=== PATIENT | male | born 1990 | race Caucasian/White ===

== ENCOUNTER 2019-07-29 12:25 | Emergency (ER) | payer SELFPAY ==
[2019-07-29 12:33] VITALS: BMI 26.4
[2019-07-29 12:36] VITALS: BP 152/95; PULSE 114; RESP 16; TEMP 36.8; O2SAT 97
--- NOTE | 2019-07-29 13:22 | W.ED.SKABFB ---
HPI - Skin/Abscess/Foreign Bdy General: Chief complaint: Skin/Abscess/Foreign Body Stated complaint: facial swelling Time Seen by Provider: 07/29/19 12:51 History of Present Illness: HPI narrative: Patient is a 29-year-old male who comes to the ED with possible abscess on face. Patient says that swelling, pain and redness on left side of face started in the past 2 days. Patient says he was shaving when he noticed a small bump on left side of face. He says within the last 2 days it is gotten significantly larger and more painful and red. He now has redness that goes to his ear down to his neck. Denies any fever or chills. Denies any shortness of breath. Patient's last tetanus was about a year ago. Associated symptoms: Deny chills, fever(s), nausea or vomiting Review of Systems Const: Denies: fever(s), chills or fatigue Eyes: Denies: change in vision or eye discomfort ENMT: Reports: sinus pain (Facial pain and swelling on left side of lower jaw.); Denies: throat pain, odynophagia, nasal discharge or nasal congestion Card: Denies: chest pain, palpitations, edema, swelling of feet/ankles, dyspnea on exertion or orthopnea Resp: Denies: dyspnea, productive cough or non-productive cough GI: Denies: abdominal pain, nausea, vomiting, diarrhea, constipation or hematochezia : Denies: flank pain, difficulty urinating, dysuria or hematuria Musc: Denies: neck pain, back pain or extremity swelling Skin/Breast: Denies: rash or new lesions Neuro: Denies: headache(s), numbness in extremities or weakness in extremities PFSH ED PFSH: Social History Smoking and tobacco status: current every day smoker cigarettes Packs smoked per day: 0.5 Alcohol intake: never Physical Exam Const: COMMON NORMALS: patient oriented x3 and alert GENERAL APPEARANCE: cooperative HENMT: COMMON NORMALS: normocephalic HEAD & SCALP: normocephalic FACE & SINUS: erythema on the left mandible and edema on the left mandible MOUTH: Normal oral and palatal mucosa present THROAT: posterior oropharynx normal and uvula midline Eye: COMMON NORMALS: Equal, round and reactive pupils present PUPIL: Yes Equal, round and reactive pupils present Neck/C-Spine: COMMON NORMALS: supple GENERAL: Yes normal visual inspection Resp: COMMON NORMALS: normal respiratory effort, No retractions, No use of accessory muscles and clear to auscultation bilaterally AUSCULTATION: clear to auscultation bilaterally Cardio: COMMON NORMALS: regular rate, regular rhythm, S1 normal heart sound present, S2 normal heart sound present, No gallops present (Cardio), No clicks present (Cardio), No murmurs present (Cardio) and Peripheral pulses 2+ throughout RATE: regular rate RHYTHM: regular rhythm HEART SOUNDS: S1 normal heart sound present and S2 normal heart sound present PERIPHERAL PULSES: Peripheral pulses 2+ throughout GI: COMMON NORMALS: Normal to inspection, nondistended, normoactive bowel sounds present, Soft to palpation, non-tender and no masses PALPATION: Yes Soft to palpation : COMMON NORMALS: Yes no CVA tenderness BLADDER/KIDNEY EXAM: Yes no CVA tenderness Back/Pelvis: COMMON NORMALS: no CVA tenderness Extremity: COMMON NORMALS: normal to inspection Neuro: COMMON NORMALS: patient oriented x3 and moves all extremities SENSORIUM/ORIENTATION: Yes alert Skin: LESIONS: lesion noted left-side of face Lesion type: Yes nodule Lesion size (cm): 2 Lesion location: left side of face over mandible Lesion color: Yes erythematous Lesion consistency: Yes fluctuent and Yes firm Lesion surface: Yes dry Lesion tenderness: Yes moderate Lesion finding consistent with: Yes other (abscess) Procedures Abscess I/D Site: face Side (if applicable): left Sedation/analgesia: none Local Anesthetic: lidocaine 1% and with epi Amount of anesthesia used (mL): 10 Technique: incised with #11 blade Amount of fluid expressed (mL): 10 Irrigation: Yes Packing used?: iodoform Course Vital Signs: Vital signs: Vital Signs Temperature 99.0 F 07/29/19 14:55 Pulse Rate 68 07/29/19 14:55 Respiratory Rate 18 07/29/19 14:55 Blood Pressure 148/90 07/29/19 14:55 Pulse Oximetry 100 07/29/19 14:55 MDM - Skin/Abscess/Foreign Bdy MDM Narrative: Medical decision making narrative: Patient is a 29-year-old male who comes to the ED with left facial abscess. Incision and drainage was performed on the abscess. Purulent drainage was collected and sent to lab for culture. Packing was placed an abscess. Patient was given a prescription of Bactrim and told to return to the ED in 1 to 2 days for reevaluation and packing removal. Patient understood and agreed with plan. Discharge Plan Discharge Patient Disposition: Home, Self-Care Clinical Impression: Abscess Condition: Stable Prescriptions: New Bactrim DS 800-160 mg tablet 1 tab PO BID 10 Days Qty: 20 RF: 0 No Action ibuprofen 200 mg Tablet 200 mg PO Q6H PRN (Reason: Pain) RF: 0 Discharge Orders: Discharge Order (Routine); Ordered 07/29/19 Ordered By: Shailesh Kenny Discharge Diet: Regular Discharge Activity: Resume usual activity Patient Instructions: Abscess Incision and Drainage (ED), Abscess (ED) Activity Restrictions/Additional Instructions: Return to the ED for reevaluation and to get packing removed on abscess in 1 to 2 days. Take full course of antibiotics as prescribed. You take ibuprofen or Tylenol for pain. Discharge Date/Time: 07/29/19 14:57 Coding Level of Care Code ED Steam And Power Superintendent for Khris Banerjee Exam Comprehensive
[2019-07-29 13:37] VITALS: RESP 18
[2019-07-29] MEDS: morphine 4 mg/mL SDV 1 mL IM (13:37)
[2019-07-29 14:00] VITALS: BP 150/90; PULSE 66; RESP 18; TEMP 36.7; O2SAT 100
[2019-07-29 14:32] VITALS: RESP 18
[2019-07-29] MEDS: sulfamethoxazole-trimeth DS 160-800 mg Tablet 1 TAB PO (14:54)
[2019-07-29 14:55] VITALS: BP 148/90; PULSE 68; RESP 18; TEMP 37.2; O2SAT 100
== END 2019-07-29 14:57 | disposition home or self-care (01) ==
PROVIDERS: Emergency Provider Physician Assistant
DX: L02.01 Cutaneous abscess of face (principal); F17.210 Nicotine dependence, cigarettes, uncomplicated
CPT/HCPCS: 10060; 12345; 87070; 87075; 87077; 87186; 87205; 96372; 99283; J2001; J2270

== ENCOUNTER 2019-07-31 10:56 | Emergency (ER) | payer SELFPAY ==
[2019-07-31 10:59] VITALS: BP 129/74; PULSE 78; RESP 17; TEMP 37.1; O2SAT 98; BMI 26.4
--- NOTE | 2019-07-31 11:32 | ED_ITS ---
HPI - General Adult General: Chief complaint: General Medical Stated complaint: NEEDS PACKING TAKEN OUT Time Seen by Provider: 07/31/19 11:06 History of Present Illness: HPI narrative: Patient is a 29-year-old male who comes in for reevaluation and packing removal after abscess I&D performed 2 days ago. Patient says his swelling his decreased and his pain has improved. He has been taking full course of antibiotics as prescribed. Associated symptoms: Deny chest pain, dyspnea, headache(s), nausea, rash, palpitations or vomiting Review of Systems Const: Denies: fever(s), chills or fatigue Eyes: Denies: change in vision or eye discomfort ENMT: Reports: sinus pain (improving left side facial swelling due to abscess); Denies: throat pain, odynophagia, nasal discharge or nasal congestion Card: Denies: chest pain, palpitations, edema, swelling of feet/ankles, dyspnea on exertion or orthopnea Resp: Denies: dyspnea, productive cough or non-productive cough GI: Denies: abdominal pain, nausea, vomiting, diarrhea, constipation or hematochezia : Denies: flank pain, difficulty urinating, dysuria or hematuria Musc: Denies: neck pain, back pain or extremity swelling Skin/Breast: Reports: new lesions (Abscess on left side of face I&D 2 days ago.); Denies: rash Neuro: Denies: headache(s), numbness in extremities or weakness in extremities PFSH ED PFSH: Social History Smoking and tobacco status: current every day smoker cigarettes Packs smoked per day: 0.5 Alcohol intake: never Physical Exam Const: COMMON NORMALS: patient oriented x3 HENMT: COMMON NORMALS: normocephalic HEAD & SCALP: normocephalic MOUTH: Normal oral and palatal mucosa present THROAT: posterior oropharynx normal and uvula midline Neck/C-Spine: COMMON NORMALS: supple GENERAL: Yes normal visual inspection Resp: COMMON NORMALS: normal respiratory effort, No retractions, No use of accessory muscles and clear to auscultation bilaterally AUSCULTATION: clear to auscultation bilaterally Cardio: COMMON NORMALS: regular rate, regular rhythm, S1 normal heart sound present, S2 normal heart sound present, No gallops present (Cardio), No clicks present (Cardio), No murmurs present (Cardio) and Peripheral pulses 2+ throughout RATE: regular rate RHYTHM: regular rhythm HEART SOUNDS: S1 normal heart sound present and S2 normal heart sound present PERIPHERAL PULS ES: Peripheral pulses 2+ throughout GI: COMMON NORMALS: Normal to inspection, nondistended, normoactive bowel sounds present, Soft to palpation, non-tender and no masses PALPATION: Yes Soft to palpation : COMMON NORMALS: Yes no CVA tenderness BLADDER/KIDNEY EXAM: Yes no CVA tenderness Back/Pelvis: COMMON NORMALS: no CVA tenderness Neuro: COMMON NORMALS: patient oriented x3 and moves all extremities Skin: NARRATIVE SKIN EXAM: Abscess area was still draining some pus after removing the packing. I then pushed on the area drained more pus and fluid out. Swelling has improved significantly compared to 2 days ago. Course Vital Signs: Vital signs: Vital Signs Temperature 98.7 F 07/31/19 10:59 Pulse Rate 80 07/31/19 11:47 Respiratory Rate 17 07/31/19 11:47 Blood Pressure 129/74 07/31/19 10:59 Pulse Oximetry 98 07/31/19 11:47 MDM - General Adult MDM Narrative: Medical decision making narrative: Patient is a 29-year-old male who comes to the ED for reevaluation of abscess and packing removal. Patient swelling on left side of face improved significantly compared to 2 days ago. He says he is having less pain and improvement in swelling. He has been taking his full course of Bactrim as prescribed. I removed the packing and applied pressure on incision area and more purulent drainage came out. We then placed a bandage fact over the area and patient was discharged and told to come back for reevaluation in 5 to 7 days. Patient understood and agreed with plan. Discharge Plan Discharge Patient Disposition: Home, Self-Care Clinical Impression: Abscess Condition: Stable Prescriptions: No Action ibuprofen 200 mg Tablet 200 mg PO Q6H PRN (Reason: Pain) RF: 0 Bactrim DS 800-160 mg tablet 1 tab PO BID 10 Days Qty: 20 RF: 0 Discharge Orders: Discharge Order (Routine); Ordered 07/31/19 Ordered By: Shailesh Kenny Discharge Diet: Regular Discharge Activity: Resume usual activity Patient Instructions: Abscess (ED) Activity Restrictions/Additional Instructions: Continue taking your Bactrim as prescribed. I have abscess reevaluated in about 5 to 7 days. You can return to the ED if you notice any worsening symptoms. Keep abscess site bandaged to catch drainage. Discharge Date/Time: 07/31/19 11:48 Coding Level of Care Code ED Welding Machine Assembler for Khris Banerjee Exam Comprehensive
[2019-07-31 11:47] VITALS: PULSE 80; RESP 17; O2SAT 98
[2019-07-31] MEDS: HYDROcodone-acetaminophen 7.5-325 mg Tablet 1 TAB PO (11:47)
--- NOTE | 2019-08-02 06:19 | PC.NURSE ---
Lab called micro report on abscess. Dr. Leung reviewed results and patient's visit and the Bactrim patient is on and states antibiotics are appropriate. No new orders given.
== END 2019-07-31 11:48 | disposition home or self-care (01) ==
PROVIDERS: Emergency Provider Physician Assistant
DX: L02.01 Cutaneous abscess of face (principal); F17.210 Nicotine dependence, cigarettes, uncomplicated
CPT/HCPCS: 12345; 99281; 99283

== ENCOUNTER 2019-09-27 16:38 | Emergency (ER) | payer SELFPAY ==
[2019-09-27 16:52] VITALS: BP 136/84; PULSE 111; RESP 16; TEMP 36.7; O2SAT 99; BMI 25.7
--- NOTE | 2019-09-27 17:13 | ED_ITS ---
HPI - Allergic Reaction General: Chief complaint: Allergic Reaction Stated complaint: facial swelling Time Seen by Provider: 09/27/19 17:09 History of Present Illness: HPI narrative: Patient is a 29-year-old male who comes to the ED with right-sided facial swelling and pain. Patient says swelling and pain occurred in the last 24 hours. Patient had a small scratch/sore right above the right ear started getting red and painful. Denies any discharge from sore. Today his right ear and the right side of his face from the upper jaw up to his eye were swollen. He is complaining of right ear pain as well. He also feels some pain and swelling in his neck. He rates pain a 9 out of 10. Denies any fevers, chills, change in hearing, sore throat, throat swelling obstructing airway, vomiting, bladder or bowel symptoms. Associated symptoms: Deny abdominal pain, nausea or vomiting Review of Systems Const: Denies: fever(s), chills or fatigue Eyes: Denies: change in vision or eye discomfort ENMT: Reports: ear or mastoid pain (right ear); Denies: throat pain, odynophagia, nasal discharge or nasal congestion Card: Denies: chest pain, palpitations, edema, swelling of feet/ankles, dyspnea on exertion or orthopnea Resp: Denies: dyspnea, productive cough or non-productive cough GI: Denies: abdominal pain, nausea, vomiting, diarrhea, constipation or hematochezia : Denies: flank pain, difficulty urinating, dysuria or hematuria Musc: Denies: neck pain, back pain or extremity swelling Skin/Breast: Reports: new lesions; Denies: rash Neuro: Denies: headache(s), numbness in extremities or weakness in extremities [facility] ED PFSH: Social History Smoking and tobacco status: current every day smoker cigarettes Packs smoked per day: 0.5 Alcohol intake: current Alcohol intake frequency: few times a week Substance/Drug Use: never Physical Exam Const: COMMON NORMALS: patient oriented x3, healthy appearing and alert GENERAL APPEARANCE: cooperative and comfortable HENMT: COMMON NORMALS: normocephalic and TM's normal bilaterally HEAD & SCALP: normocephalic FACE & SINUS: abrasion on the right (Small abrasion above the right ear with surrounding erythema, warmth and tenderness. It is nonfluctuant and indurated.) and edema on the right maxilla and angle of jaw EXTERNAL EAR: Yes external ear abnormal Abnormal external ear present: auricular tenderness (Right auricular swelling and tenderness.) EXTERNAL AUDITORY CANAL: Abnormal EAC present EAC laterality: right Details: erythema and EAC tenderness TYMPANIC MEMBRANE: TM's normal bilaterally MOUTH: Normal oral and palatal mucosa present THROAT: posterior oropharynx normal and uvula midline Eye: COMMON NORMALS: Equal, round and reactive pupils present and conjunctivae normal PERIORBITAL: periorbital findings abnormal positive right periorbital swelling (Mild swelling) CONJUNCTIVA: Yes conjunctivae normal PUPIL: Yes Equal, round and reactive pupils present Neck/C-Spine: COMMON NORMALS: supple GENERAL: Yes normal visual inspection Lymph: LYMPHATIC: lymphadenopathy OTHER: Patient has palpable lymph nodes in the posterior, anterior cervical neck chains on the right side. They are approximately 0.25 cm in size. He also has palpable submandibular lymph node on right side that measures approximately 0.25 cm in size. They are mobile Resp: COMMON NORMALS: normal respiratory effort, No retractions, No use of accessory muscles and clear to auscultation bilaterally AUSCULTATION: clear to auscultation bilaterally Cardio: COMMON NORMALS: regular rate, regular rhythm, S1 normal heart sound present, S2 normal heart sound present, No gallops present (Cardio), No clicks present (Cardio), No murmurs present (Cardio) and Peripheral pulses 2+ throughout RATE: regular rate RHYTHM: regular rhythm HEART SOUNDS: S1 normal heart sound present and S2 normal heart sound present PERIPHERAL PULSES: Peripheral pulses 2+ throughout GI: COMMON NORMALS: Normal to inspection, nondistended, normoactive bowel sounds present, Soft to palpation, non-tender and no masses PALPATION: Yes Soft to palpation : COMMON NORMALS: Yes no CVA tenderness BLADDER/KIDNEY EXAM: Yes no CVA tenderness Back/Pelvis: COMMON NORMALS: no CVA tenderness Extremity: COMMON NORMALS: normal to inspection and no pedal edema Neuro: COMMON NORMALS: patient oriented x3 and moves all extremities SENSORIUM/ORIENTATION: Yes alert Skin: NARRATIVE SKIN EXAM: Patient appears to have a small abrasion above the right ear with some surrounding, warmth and erythema and tenderness to palpation. Upon palpation it is nonfluctuant and indurated. He has visible facial edema right side maxillary and right ear edema. GENERAL SKIN EXAM: dry skin Course ED course: Bedside ultrasound performed and no abscess formation identified. Vital Signs: Vital signs: Vital Signs Temperature 98.6 F 09/27/19 20:22 Pulse Rate 90 09/27/19 20:22 Respiratory Rate 16 09/27/19 20:22 Blood Pressure 145/85 09/27/19 20:22 Pulse Oximetry 99 09/27/19 20:22 MDM - Allergic Reaction MDM Narrative: Medical decision making narrative: Patient is a 29-year-old male who comes to the ED with swelling on right side of face. Exam shows an abrasion above the right ear with erythema no warmth and tenderness. No visible drainage. Nonfluctuant and indurated.--Cellulitis. Right ear exam showed external canal erythema and tenderness. Bedside ultrasound performed and no abscess was seen. Patient was diagnosed with cellulitis and otitis externa. He was sent home with a prescription of clindamycin and Cipro?Dex eardrops. Patient was told to return to ED if pain and swelling increases to reevaluate and potentially drain abscess. Patient understood and agreed with plan. Lab Data: Attestation: I reviewed the patient's lab results. Labs: Lab Results 09/27/19 09/27/19 Range/Units 17:26 17:26 WBC 8.7 (4.0-10.0) 10^3/ uL RBC 5.08 (4.1-5.3) 10^6/u L Hgb 14.7 (11.7-16.6) g/dL Hct 44.9 (42.0-52.0) % MCV 88.4 (80-94) fL MCH 28.9 (28.0-34.0) pg MCHC 32.7 (30.0-36.0) g/dL RDW 11.9 L (12.1-15.1) % Plt Count 277 (130-400) 10^3/c mm MPV 8.7 (7.4-10.4) fL Neut % (Auto) 71.9 % Lymph % (Auto) 18.4 % [place] % (Auto) 4.7 % Eos % (Auto) 4.4 % Baso % (Auto) 0.5 % Neut # (Auto) 6.23 (1.8-7.7) 10^3/u L Lymph # (Auto) 1.6 (0.8-4.8) 10^3/u L [place] # (Auto) 0.4 (0.2-0.9) 10^3/u L Eos # (Auto) 0.4 (0.0-0.8) 10^3/u L Baso # (Auto) 0.0 (0.0-0.1) 10^3/u L Nucleated RBC % (a uto) 0 % Nucleated RBCs # 0.0 /100WBC Sodium 139 (136-145) mmol/L Potassium 3.7 (3.5-5.1) mmol/L Chloride 101 (98-107) mmol/L Carbon Dioxide 29 (22-29) mmol/L Anion Gap 12.7 (5-19) BUN 14 (6-20) mg/dL Creatinine 0.8 (0.7-1.2) mg/dL GFR Calculation 112.8 (90-130) mL/min Glucose 95 (65-115) mg/dL Calculated Osmolal ity 284 L (285-295) mOsm/k g Calcium 9.5 (8.5-10.5) mg/dL Total Bilirubin 0.5 (0.15-1.2) mg/dL AST 28 (0-40) U/L ALT 57 H (0-41) U/L Alkaline Phosphata se 93 (40-130) IU/L Total Protein 7.0 (6.6-8.7) g/dL Albumin 4.1 (3.5-5.2) g/dL Globulin 2.9 (1.3-4.6) g/dL Discharge Plan Discharge Patient Disposition: Home Clinical Impression: Cellulitis Qualifiers: Site of cellulitis: head Qualified Code(s): L03.811 - Cellulitis of head [any part, except face] Otitis externa Qualifiers: Otitis externa type: other infective Chronicity: acute Laterality: right Qualified Code(s): H60.391 - Other infective otitis externa, right ear Condition: Stable Prescriptions: New clindamycin HCl 150 mg capsule 300 mg PO QID 7 Days Qty: 56 RF: 0 ciprofloxacin-dexamethasone 0.3-0.1 % drops,suspension 4 drop EAR-BOTH BID 7 Days Qty: 7.5 RF: 0 No Action ibuprofen 200 mg Tablet 200 mg PO Q6H PRN (Reason: Pain) RF: 0 naproxen 375 mg Tablet 375 mg PO BID PRN (Reason: Pain) RF: 0 clindamycin HCl 75 mg Capsule 75 mg PO DAILY RF: 0 Benadryl 25 mg Capsule 25 mg PO QID PRN (Reason: unknown) RF: 0 Discharge Orders: Discharge Order (Routine); Ordered 09/27/19 Ordered By: Shailesh Kenny Discharge Diet: Regular Discharge Activity: Resume usual activity Patient Instructions: Cellulitis (ED), Otitis Externa (ED) Activity Restrictions/Additional Instructions: Follow-up with medical provider as directed in 7 days. Return to ED or urgent care if symptoms and swelling worsen after couple days of being on antibiotic. Take medications as prescribed. Return to the ER or your medical provider if condition worsens. Please read and understand discharge instructions. If any questions, please ask. Discharge Date/Time: 09/27/19 20:24 Coding Level of Care Code ED Hemming And Tacking Machine Operator for Khris Fwrobert Exam Comprehensive
[2019-09-27 17:38] LABS: Basophils % 0.5 %; Eosinophils # 0.4 10^3/uL (0.0-0.8); Eosinophils % 4.4 %; Hematocrit 44.9 % (42.0-52.0); Hemoglobin 14.7 g/dL (11.7-16.6); Lymphocytes # 1.6 10^3/uL (0.8-4.8); Lymphocytes % 18.4 %; Mean Corpuscular HGB Conc 32.7 g/dL (30.0-36.0); Mean Corpuscular Hemoglobin 28.9 pg (28.0-34.0); Mean Corpuscular Volume 88.4 fL (80-94); Mean Platelet Volume 8.7 fL (7.4-10.4); Monocytes # 0.4 10^3/uL (0.2-0.9); Monocytes % 4.7 %; Neutrophils # 6.23 10^3/uL (1.8-7.7); Neutrophils % 71.9 %; Nucleated Red Blood Cells % 0 %; Platelet Count 277 10^3/cmm (130-400); Red Blood Count 5.08 10^6/uL (4.1-5.3); Red Cell Distribution Width 11.9 % (12.1-15.1); White Blood Count 8.7 10^3/uL (4.0-10.0)
[2019-09-27] MEDS: diphenhydrAMINE 50 mg/mL SDV 1mL IVP (17:43)
[2019-09-27 17:44] VITALS: BP 140/97; PULSE 100; RESP 16; O2SAT 100
[2019-09-27 18:05] VITALS: BP 137/93; RESP 16; O2SAT 99
[2019-09-27 18:05] LABS: Alanine Aminotransferase 57 U/L (0-41); Albumin Level 4.1 g/dL (3.5-5.2); Alkaline Phosphatase 93 IU/L (40-130); Anion Gap 12.7 (5-19); Aspartate Amino Transferase 28 U/L (0-40); Blood Urea Nitrogen 14 mg/dL (6-20); Calcium 9.5 mg/dL (8.5-10.5); Carbon Dioxide 29 mmol/L (22-29); Chloride 101 mmol/L (98-107); Globulin 2.9 g/dL (1.3-4.6); Glomerular Filtration Rate 112.8 mL/min (90-130); Glucose 95 mg/dL (65-115); Osmolality Calculated 284 mOsm/kg (285-295); Potassium 3.7 mmol/L (3.5-5.1); Sodium 139 mmol/L (136-145); Total Bilirubin 0.5 mg/dL (0.15-1.2)
[2019-09-27] MEDS: sodium chloride 0.9% 1,000 ML 999 ML IV (18:08)
[2019-09-27] MEDS: ondansetron 2 mg/ML SDV 2 mL 4 MG IVP (18:08)
[2019-09-27] MEDS: HYDROcodone-acetaminophen 7.5-325 mg Tablet 1 TAB PO ×2 (18:08→20:21)
[2019-09-27 18:48] VITALS: BP 137/93; PULSE 95; RESP 18; TEMP 36.9; O2SAT 100
[2019-09-27] MEDS: ciprofloxacin-dexameth Otic Susp 7.5 mL Btl 4 DROP EAR-RIGHT (18:52)
[2019-09-27] MEDS: clindamycin 900 MG/50 ML PREMIX 100 MG IV (18:54)
[2019-09-27 20:22] VITALS: BP 145/85; PULSE 90; RESP 16; TEMP 37; O2SAT 99
== END 2019-09-27 20:24 | disposition home or self-care (01) ==
PROVIDERS: Emergency Provider Physician Assistant
DX: L03.811 Cellulitis of head [any part, except face] (principal); H60.391 Other infective otitis externa, right ear; F17.210 Nicotine dependence, cigarettes, uncomplicated
CPT/HCPCS: 12345; 36415; 80053; 85025; 87040; 96365; 96375; 99283; 99284; J1200; J2405; J2930; J3490; J7030

== ENCOUNTER 2020-04-23 16:49 | Emergency (ER) | payer SELFPAY ==
[2020-04-23 16:53] VITALS: BP 147/84; PULSE 83; RESP 18; TEMP 36.6; O2SAT 98; BMI 24.4
--- NOTE | 2020-04-23 17:17 | US_ITS ---
WS: [id number] SCROTAL ULTRASOUND EXAMINATION CLINICAL INFORMATION: scrotal abscess COMPARISON: None. FINDINGS: TESTES Diffuse scrotal skin thickening with edema measuring up to 2.0 CM. Normal echogenicity in the testicl es bilaterally. Hypoechoic focus in the right scrotum measuring 1.2 x 0.7 cm likely represents focal infection with small phlegmon/abscess. This does not appear drainable. Color Doppler: Normal color Doppler flow pattern. Right testes size: 4.2 cm x 3.1 cm x 2.9 cm. Left testes size: 5.3 cm x 3.3 cm x 3.8 cm. EPIDIDYMIDES Enlargement with edema and increased vascularity involving the right epididymis consistent with epidi dymitis. Left epididymis is normal. Right epididymis size: cm x cm x cm. Left epididymitis size: 1.6 cm x cm x cm. HYDROCELE None. VARICOCELE None. OTHER FINDINGS None. US/US scrotum [id number] IMPRESSION: 1. Right epididymitis. 2. Diffuse scrotal skin thickening with edema measuring up to 2.0 cm. Focal hy poechoic collection in the edematous scrotum likely small abscess measuring 1.3 x 0.7 cm. This does not appear drainable. 3. Testicles are otherwise normal in appearance with normal echogenicity and v ascularity.
--- NOTE | 2020-04-23 17:20 | ED_ITS ---
Documented by User: Luis Leung DO 04/24/20 12:45 HPI - Wound/Laceration General: Chief Complaint: Wound/Laceration Stated Complaint: SWOLLEN GENITALS Time Seen by Provider: 04/23/20 16:54 History of Present Illness: HPI narrative: 30-year-old male presents emergency room with complaint of severe swelling of the right side of the scrotum with an abscess had been trying to manipulate it at home tried various things and it did not improve in fact markedly worsened to the point where now he can barely walk. He has severe pain and swelling. Onset (ago): day(s) Location: genitals Place: home Context: sharp object use Associated symptoms: Reports nausea and pain; Denies chills, fever(s), foreign body sensation, inability to move, numbness, syncope or vomiting Review of Systems Const: Denies: fever(s) or chills ENMT: Denies: throat pain, ear or mastoid pain, nasal discharge or nasal congestion Card: Denies: syncope Resp: Denies: dyspnea, productive cough or non-productive cough GI: Reports: nausea; Denies: vomiting : Denies: flank pain, dysuria, urinary frequency or urinary urgency Skin/Breast: Denies: rash or pruritus PFSH ED PFSH: Social History Smoking and tobacco status: current every day smoker cigarettes Packs smoked per day: 0.5 Alcohol intake: current Alcohol intake frequency: few times a week Physical Exam Const: COMMON NORMALS: no acute distress GENERAL APPEARANCE: cooperative and comfortable ORIENTATION/CONSCIOUSNESS: Yes awake, Yes oriented to person, Yes oriented to place and Yes oriented to time HENMT: COMMON NORMALS: normocephalic, atraumatic and hearing grossly normal bilaterally HEAD & SCALP: normocephalic and atraumatic Neck/C-Spine: COMMON NORMALS: no JVD Lymph: LYMPHATIC: no lymphadenopathy noted and no lymphedema noted Resp: COMMON NORMALS: normal respiratory effort, No retractions, No use of accessory muscles and clear to auscultation bilaterally AUSCULTATION: clear to auscultation bilaterally Cardio: COMMON NORMALS: no JVD, regular rate, regular rhythm and No murmurs present (Cardio) RATE: regular rate RHYTHM: regular rhythm GI: COMMON NORMALS: Soft to palpation and No hepatosplenomegaly present AUSCULTATION: Yes normoactive bowel sounds PALPATION: Yes Soft to palpation, No Tenderness to palpation present (GI), No Guarding due to palpation present (GI) and Yes No hepatosplenomegaly present : COMMON NORMALS: Yes no CVA tenderness BLADDER/KIDNEY EXAM: Yes no CVA tenderness PENIS: normal penis and uncircumcised MEATUS: meatus normal, no meatla discharge and No Blood at meatus present SCROTUM: Yes testes descended bilaterally, No inguinal hernia, Yes Scrotal tenderness present and Yes erythematous Scrotal erythema laterality: right TESTES: Yes testicular swelling Testicular swelling laterality: right and Yes testicular tenderness Testicular tenderness laterality: right Back/Pelvis: COMMON NORMALS: no CVA tenderness Extremity: COMMON NORMALS: normal to inspection, capillary refill normal, no clubbing, cyanosis or edema, no calf tenderness and no pedal edema Neuro: SENSORIUM/ORIENTATION: Yes oriented to person, Yes oriented to place and Yes oriented to time Skin: COMMON NORMALS: no rashes or lesions noted GENERAL SKIN EXAM: no rashes or lesions noted Course Vital Signs: Vital signs: Vital Signs Temperature 97.9 F 04/23/20 16:53 Pulse Rate 72 04/23/20 20:14 Respiratory Rate 16 04/23/20 20:14 Blood Pressure 134/82 04/23/20 20:14 Pulse Oximetry 100 04/23/20 20:14 MDM - Wound/Laceration MDM Narrative: Medical decision making narrative: Care turned over to Dr. Gonzalez at change of shift see his notes for final diagnosis and disposition. Lab Data: Labs: Lab Results 04/23/20 04/23/20 Range/Units 17:26 17:26 WBC 11.4 H (4.0-10.0) 10^3/ uL RBC 4.69 (4.1-5.3) 10^6/u L Hgb 14.0 (11.7-16.6) g/dL Hct 41.1 L (42.0-52.0) % MCV 87.6 (80-94) fL MCH 29.9 (28.0-34.0) pg MCHC 34.1 (30.0-36.0) g/dL RDW 12.3 (12.1-15.1) % Plt Count 316 (130-400) 10^3/c mm MPV 9.1 (7.4-10.4) fL Neut % (Auto) 76.9 % Lymph % (Auto) 14.6 % [place] % (Auto) 5.7 % Eos % (Auto) 2.0 % Baso % (Auto) 0.4 % Neut # (Auto) 8.77 H (1.8-7.7) 10^3/u L Lymph # (Auto) 1.7 (0.8-4.8) 10^3/u L [place] # (Auto) 0.7 (0.2-0.9) 10^3/u L Eos # (Auto) 0.2 (0.0-0.8) 10^3/u L Baso # (Auto) 0.1 (0.0-0.1) 10^3/u L Nucleated RBC % (a uto) 0 % Nucleated RBCs # 0.0 /100WBC Sodium 140 (136-145) mmol/L Potassium 3.9 (3.5-5.1) mmol/L Chloride 101 (98-107) mmol/L Carbon Dioxide 29 (22-29) mmol/L Anion Gap 13.9 (5-19) BUN 8 (6-20) mg/dL Creatinine 0.7 (0.7-1.2) mg/dL GFR Calculation 130.7 H (90-130) mL/min Glucose 85 (65-115) mg/dL Calculated Osmolal ity 288 (285-295) mOsm/k g Calcium 8.8 (8.5-10.5) mg/dL Total Bilirubin 0.4 (0.15-1.2) mg/dL AST 15 (0-40) U/L ALT 29 (0-41) U/L Alkaline Phosphata se 102 (40-130) IU/L Total Protein 7.0 (6.6-8.7) g/dL Albumin 3.7 (3.5-5.2) g/dL Globulin 3.3 (1.3-4.6) g/dL Discharge Plan Discharge Patient Disposition: Home Clinical Impression: Epididymitis Cellulitis Qualifiers: Site of cellulitis: trunk Site of cellulitis of trunk: groin Qualified Code(s): L03.314 - Cellulitis of groin Condition: Stable Prescriptions: [place] 5-325 mg tablet 1 tab PO Q6H PRN (Reason: pain) Qty: 14 RF: 0 ondansetron 4 mg tablet,disintegrating 4 mg PO Q6H PRN (Reason: nausea and vomiting) Qty: 14 RF: 0 levofloxacin 750 mg tablet 750 mg PO DAILY 10 Days RF: 0 No Action ibuprofen 200 mg Tablet 200 mg PO Q6H PRN (Reason: Pain) RF: 0 Discharge Orders: Discharge ED (Routine); Ordered 04/23/20 Ordered By: Fabiano Gonzalez Referrals: Jordy Gorman MD [Physician] - 1-3 days Discharge Diet: Advance as tolerated Discharge Activity: Resume usual activity Patient Instructions: Epididymitis (ED), Opioid Safety Coding Level of Care Code ED Motorcycle Tester for Chg Fwd Exam Comprehensive Documented by User: Fabiano Gonzalez MD 04/23/20 19:54 HPI - Wound/Laceration General: Chief Complaint: Wound/Laceration Stated Complaint: SWOLLEN GENITALS Time Seen by Provider: 04/23/20 16:54 PFSH ED PFSH: Social History Smoking and tobacco status: current every day smoker cigarettes Packs smoked per day: 0.5 Alcohol intake: current Alcohol intake frequency: few times a week Course Vital Signs: Vital signs: Vital Signs Temperature 97.9 F 04/23/20 16:53 Pulse Rate 72 04/23/20 20:14 Respiratory Rate 16 04/23/20 20:14 Blood Pressure 134/82 04/23/20 20:14 Pulse Oximetry 100 04/23/20 20:14 MDM - Wound/Laceration MDM Narrative: Medical decision making narrative: Patient presents with epididymitis along with cellulitis. His ultrasound showed no acute fluid collection or abscess. Patient's white blood cell count is minimally elevated. I spoke to Dr. Gorman he recommended giving patient IV antibiotics here and placed him on Levaquin for home and he will see is in his office in 2 to 4 days. Informed patient he is to follow-up with Dr. Gorman by the end of the week and he is to return to ER if he has any worsening symptoms. He understands and agrees to this plan. Lab Data: Labs: Lab Results 04/23/20 04/23/20 Range/Units 17:26 17:26 WBC 11.4 H (4.0-10.0) 10^3/ uL RBC 4.69 (4.1-5.3) 10^6/u L Hgb 14.0 (11.7-16.6) g/dL Hct 41.1 L (42.0-52.0) % MCV 87.6 (80-94) fL MCH 29.9 (28.0-34.0) pg MCHC 34.1 (30.0-36.0) g/dL RDW 12.3 (12.1-15.1) % Plt Count 316 (130-400) 10^3/c mm MPV 9.1 (7.4-10.4) fL Neut % (Auto) 76.9 % Lymph % (Auto) 14.6 % [place] % (Auto) 5.7 % Eos % (Auto) 2.0 % Baso % (Auto) 0.4 % Neut # (Auto) 8.77 H (1.8-7.7) 10^3/u L Lymph # (Auto) 1.7 (0.8-4.8) 10^3/u L [place] # (Auto) 0.7 (0.2-0.9) 10^3/u L Eos # (Auto) 0.2 (0.0-0.8) 10^3/u L Baso # (Auto) 0.1 (0.0-0.1) 10^3/u L Nucleated RBC % (a uto) 0 % Nucleated RBCs # 0.0 /100WBC Sodium 140 (136-145) mmol/L Potassium 3.9 (3.5-5.1) mmol/L Chloride 101 (98-107) mmol/L Carbon Dioxide 29 (22-29) mmol/L Anion Gap 13.9 (5-19) BUN 8 (6-20) mg/dL Creatinine 0.7 (0.7-1.2) mg/dL GFR Calculation 130.7 H (90-130) mL/min Glucose 85 (65-115) mg/dL Calculated Osmolal ity 288 (285-295) mOsm/k g Calcium 8.8 (8.5-10.5) mg/dL Total Bilirubin 0.4 (0.15-1.2) mg/dL AST 15 (0-40) U/L ALT 29 (0-41) U/L Alkaline Phosphata se 102 (40-130) IU/L Total Protein 7.0 (6.6-8.7) g/dL Albumin 3.7 (3.5-5.2) g/dL Globulin 3.3 (1.3-4.6) g/dL Discharge Plan Discharge Patient Disposition: Home Clinical Impression: Epididymitis Cellulitis Qualifiers: Site of cellulitis: trunk Site of cellulitis of trunk: groin Qualified Code(s): L03.314 - Cellulitis of groin Condition: Stable Prescriptions: [place] 5-325 mg tablet 1 tab PO Q6H PRN (Reason: pain) Qty: 14 RF: 0 ondansetron 4 mg tablet,disintegrating 4 mg PO Q6H PRN (Reason: nausea and vomiting) Qty: 14 RF: 0 levofloxacin 750 mg tablet 750 mg PO DAILY 10 Days RF: 0 No Action ibuprofen 200 mg Tablet 200 mg PO Q6H PRN (Reason: Pain) RF: 0 Discharge Orders: Discharge ED (Routine); Ordered 04/23/20 Ordered By: Fabiano Gonzalez Referrals: Jordy Gorman MD [Physician] - 1-3 days Discharge Diet: Advance as tolerated Discharge Activity: Resume usual activity Patient Instructions: Epididymitis (ED), Opioid Safety Coding Level of Care Code ED Motorcycle Tester for Chg Fwd Exam Comprehensive
[2020-04-23 17:33] LABS: Basophils # 0.1 10^3/uL (0.0-0.1); Basophils % 0.4 %; Eosinophils # 0.2 10^3/uL (0.0-0.8); Hematocrit 41.1 % (42.0-52.0); Lymphocytes # 1.7 10^3/uL (0.8-4.8); Lymphocytes % 14.6 %; Mean Corpuscular HGB Conc 34.1 g/dL (30.0-36.0); Mean Corpuscular Hemoglobin 29.9 pg (28.0-34.0); Mean Corpuscular Volume 87.6 fL (80-94); Mean Platelet Volume 9.1 fL (7.4-10.4); Monocytes # 0.7 10^3/uL (0.2-0.9); Monocytes % 5.7 %; Neutrophils # 8.77 10^3/uL (1.8-7.7); Neutrophils % 76.9 %; Nucleated Red Blood Cells % 0 %; Platelet Count 316 10^3/cmm (130-400); Red Blood Count 4.69 10^6/uL (4.1-5.3); Red Cell Distribution Width 12.3 % (12.1-15.1); White Blood Count 11.4 10^3/uL (4.0-10.0)
[2020-04-23 17:49] VITALS: RESP 18
[2020-04-23] MEDS: morphine 4 mg/mL SDV 1 mL 6 MG IVP (17:49)
[2020-04-23] MEDS: ondansetron 2 mg/ML SDV 2 mL 4 MG IVP (17:50)
[2020-04-23] MEDS: sodium chloride 0.9% 1,000 ML 999 ML IV (17:51)
[2020-04-23] MEDS: vancomycin 1,000 MG in sodium chloride 0.9% 250 ML 250 MG IV (17:54)
[2020-04-23 18:37] LABS: Alanine Aminotransferase 29 U/L (0-41); Albumin Level 3.7 g/dL (3.5-5.2); Alkaline Phosphatase 102 IU/L (40-130); Anion Gap 13.9 (5-19); Aspartate Amino Transferase 15 U/L (0-40); Blood Urea Nitrogen 8 mg/dL (6-20); Calcium 8.8 mg/dL (8.5-10.5); Carbon Dioxide 29 mmol/L (22-29); Chloride 101 mmol/L (98-107); Globulin 3.3 g/dL (1.3-4.6); Glomerular Filtration Rate 130.7 mL/min (90-130); Glucose 85 mg/dL (65-115); Osmolality Calculated 288 mOsm/kg (285-295); Potassium 3.9 mmol/L (3.5-5.1); Sodium 140 mmol/L (136-145); Total Bilirubin 0.4 mg/dL (0.15-1.2)
[2020-04-23 19:18] VITALS: BP 147/84; PULSE 75; RESP 16; O2SAT 99
[2020-04-23] MEDS: cefTRIAXone 1,000 MG in sodium chloride 0.9% (plus) 50 ML 100 MG IV (19:41)
[2020-04-23] MEDS: azithromycin 250 mg Tablet 1000 MG PO (19:42)
[2020-04-23 20:14] VITALS: BP 134/82; PULSE 72; RESP 16; O2SAT 100
--- NOTE | 2020-04-24 11:26 | DCPLANNER ---
manager film had message to schedule a follow up appointment for patient with Dr. Gorman. manager film called the office of Dr. Gorman, spoke with Sonal, gave clinic patients information. manager film was told that patients information would be printed and reviewed. Clinic will call patient with appointment information.
--- NOTE | 2020-04-30 08:22 | DCPLANNER ---
Patient had a follow up appointment scheduled for 04.26.[address] Gorman - patient did not attend appointment.
== END 2020-04-23 20:14 | disposition home or self-care (01) ==
PROVIDERS: Family Medicine; Emergency Provider Emergency Medicine
DX: L03.314 Cellulitis of groin (principal); N45.1 Epididymitis; F17.210 Nicotine dependence, cigarettes, uncomplicated
CPT/HCPCS: 76870; 80053; 85025; 87040; 96365; 96367; 96375; 99283; J0696; J2270; J2405; J3370; J7030; J7050; Q0144